=== PATIENT | male | born 1965 | race Caucasian/White ===

== ENCOUNTER 2019-03-07 22:38 | Outpatient (REF) | payer OTHER, SELFPAY ==
[2019-03-07 21:02] LABS: Anion Gap 8.5 mmol/L (3-11); BUN 22 mg/dL (7-18); CO2 28.5 mmol/L (21.0-32.0); Calcium 9.1 mg/dL (8.5-10.1); Chloride 102 mmol/L (98-107); Glucose 87 mg/dL (74-106); Potassium 4.3 mmol/L (3.5-5.1); Sodium 139 mmol/L (136-145)
== END 2019-03-07 22:58 ==
LOC: NCHCN 22:38
PROVIDERS: PCP Family Medicine; Visit Provider Internal Medicine
DX: I10 Essential (primary) hypertension (principal); R21 Rash and other nonspecific skin eruption
CPT/HCPCS: 80048

== ENCOUNTER 2020-05-03 20:16 | Outpatient (REF) | payer OTHER, SELFPAY ==
[2020-05-03 21:16] LABS: Anion Gap 8.7 mmol/L (3-11); BUN 19 mg/dL (7-18); CO2 28.3 mmol/L (21.0-32.0); CREATININE 0.95 mg/dL (0.70-1.30); Calcium 8.9 mg/dL (8.5-10.1); Calculated LDL 116 mg/dL (<100); Chloride 103 mmol/L (98-107); Cholesterol 188 mg/dL (<200); Glucose 91 mg/dL (74-106); HDL Cholesterol 43 mg/dL (40-60); Potassium 4.3 mmol/L (3.5-5.1); Sodium 140 mmol/L (136-145); Triglyceride 147 mg/dL (<150)
[2020-05-05 14:18] LABS: IgA 221 mg/dL (85-499); Interpretation (See Note); Tissue Transglutaminase IgA <1.2 U/mL (<4.0)
== END 2020-05-03 20:36 ==
LOC: NCHCN 20:16
PROVIDERS: PCP Family Medicine; Visit Provider Internal Medicine
DX: R19.7 Diarrhea, unspecified (principal); I10 Essential (primary) hypertension; Z13.220 Encounter for screening for lipoid disorders
CPT/HCPCS: 80048; 80061; 82784; 83516

== ENCOUNTER 2020-05-28 15:37 | Outpatient (REF) | payer OTHER, SELFPAY | END 2020-05-28 15:38 | disposition home or self-care (01) | LOC: NCHCN 15:37 | PROVIDERS: PCP Family Medicine; Visit Provider Internal Medicine | DX: Z00.00 Encounter for general adult medical examination without abnormal findings (principal); R19.7 Diarrhea, unspecified; I10 Essential (primary) hypertension; Z13.220 Encounter for screening for lipoid disorders | CPT/HCPCS: 87329; 82272; 83630 ==

== ENCOUNTER 2020-06-21 19:58 | Outpatient (REF) | payer OTHER, SELFPAY ==
[2020-06-21 13:38] LABS: C-Reactive Protein 0.08 mg/dL (0.0-0.3); TSH (W/Ref FT4) 2.11 uIU/mL (0.36-3.74)
[2020-06-22 15:20] LABS: ANCA Interpretation Negative (Negative)
[2020-06-23 23:28] LABS: Baker's Yeast, IgE <0.35 kU/L; Banana, IgE <0.35 kU/L; Barley, IgE <0.35 kU/L; Beef IgE <0.35 kU/L; Broccoli IgE <0.35 kU/L; Corn-Food IgE <0.35 kU/L; Milk, IgE <0.35 kU/L; Onion, IgE <0.35 kU/L; Soybean IgE <0.35 kU/L; White Potato, IgE <0.35 kU/L
[2020-06-23 23:59] LABS: Black/White Pepper IgE <0.35 kU/L; Cacao/Cocoa, IgE <0.35 kU/L; Cinnamon, IgE <0.35 kU/L; Strawberry, IgE <0.35 kU/L
[2020-06-25 18:02] LABS: CLASS 0; Egg Whole IgE <0.10 kU/L (<0.35)
== END 2020-06-21 19:59 | disposition home or self-care (01) ==
LOC: LBN 19:58
PROVIDERS: PCP Family Medicine; Visit Provider Surgery
DX: E73.9 Lactose intolerance, unspecified (principal); K52.89 Other specified noninfective gastroenteritis and colitis; L30.8 Other specified dermatitis; Z84.89 Family history of other specified conditions
CPT/HCPCS: 86003; 86255; 84443; 86140

== ENCOUNTER 2020-06-27 10:53 | Outpatient (REF) | payer OTHER, SELFPAY ==
[2020-06-30 19:04] LABS: Calprotectin <15.6 mcg/g
== END 2020-06-27 10:54 | disposition home or self-care (01) ==
LOC: LBN 10:53
PROVIDERS: PCP Family Medicine; Visit Provider Surgery
DX: K52.9 Noninfective gastroenteritis and colitis, unspecified (principal); E73.9 Lactose intolerance, unspecified; Z84.89 Family history of other specified conditions
CPT/HCPCS: 87493; 83993

== ENCOUNTER 2021-02-09 04:16 | Outpatient (CLI) | payer OTHER, SELFPAY ==
[2021-02-09 10:14] LABS: Source Nasal/Nares
[2021-02-09 15:19] LABS: COVID-19 PCR Negative (Negative)
== END 2021-02-09 04:17 | disposition home or self-care (01) ==
PROVIDERS: PCP Internal Medicine; Visit Provider Surgery
DX: Z20.822 Contact with and (suspected) exposure to COVID-19 (principal); Z01.818 Encounter for other preprocedural examination
CPT/HCPCS: 87635

== ENCOUNTER 2021-02-11 06:07 | Day surgery (SDC) | payer OTHER, SELFPAY ==
--- NOTE | 2021-02-10 21:33 | PDOC.DSDIS_ITS ---
Discharge Plan Disposition Patient Disposition: HOME Condition: Good Discharge Details Reason For Visit: EGD & CE Attending Provider: Leilani Escoto Primary Care Provider: Josse Rollins Home Meds and New Rx's Prescriptions: Continued lactase [Lactaid] 3,000 unit tablet 3,000 unit PO ONCE RF: 0 bisacodyl [Dulcolax (bisacodyl)] 5 mg tablet,delayed release (DR/EC) 5 mg PO ONCE Qty: 4 RF: 0 Discontinued polyethylene glycol 3350 17 gram/dose powder 238 g PO ONCE Qty: 238 RF: 0 loperamide [Imodium] 2 mg Capsule 2 mg PO DIRECTED RF: 0 Discharge Instructions Additional Instructions: DSU Colonoscopy Post- Op Instructions Instructions for Everyone who is given Anesthesia: For your safety, please do the following for the next twenty-four (24) hours: *Do Not operate a motor vehicle (car, truck, motorcycle, etc.) *Do Not drink alcoholic beverages or use any recreational drugs for the first 24 hours or while taking pain medications. The medications in your body may have a reaction that can be dangerous. *Do Not make any important decisions or sign any important papers. Findings: bile reflux -Resume fiber therapy starting on Sunday. I would give this a solid 4 weeks trial. If there is no improvement then we should try a bile acid binder such as cholestyramine Follow up: in 2 wks /my office will send a letter with the biopsy results in 2 to 3 weeks time. 1. No lifting over 20 pounds or strenuous activity for the first 24 hours after your procedure. After 24 hours there are no restrictions on your activity but you may feel fatigued for a few days. 2. After you arrive home you may have a light meal and return to your normal diet as you can tolerate it without feeling sick to your stomach. 3. You may have a bloated, gaseous feeling in your belly (abdomen) after a colonoscopy. Passing gas and belching will help. Walking or lying down on your left side with your knees flexed may relieve the discomfort. Call the office at [phone] (Office) or [phone] (Hospital) right away if you notice any of the following: a.Vomiting of blood or ?coffee ground stools?. b.Rectal bleeding 1Tbsp, blood clots or continuous bleeding. c.Severe belly (abdominal) pain. d.A hard distended belly (abdomen) and an inability to pass gas. 4. Please don?t expect to have a normal BM (bowel movement) for 2-3 days after your procedure. 5. If there are questions regarding the findings of your procedure, please contact your doctor 6. If you are unable to contact your doctor with a problem, contact the hospital at [phone]. 7. Continue all your regular medications unless directed otherwise. I understand the above instructions and have no questions. Signature of Patient or Adult Escort Name of Responsible Adult Escort Signature of Nurse Date/Time Activity:: see above Diet:: see above Discharge Orders Discharge Orders: Discharge Order (Routine); Ordered 02/10/21 Ordered By: Leilani Escoto DS: Diagnosis Discharge Diagnosis (1) Chronic diarrhea: Status: Acute (2) Family history of allergic disorder: Status: Acute (3) Eczema: Status: Acute
--- NOTE | 2021-02-10 21:38 | W.COLOREPORT ---
Colonoscopy Report Date of procedure: 02/11/21 Pre-op diagnosis general: chronic diarrhea Surgeon: Leilani Escoto Anesthesia Type: General:No Airway Estimated blood loss (mL): 1 Pathology: other Complications: None Disposition: PACU Prep: Miralax/Dulcolax Retraction Time: 9mins Procedure Description: After informed consent was obtained the patient was taken to the procedure room and placed in a left decubitous position. Monitors were applied and a time out was done. The patients name, date of , procedure, allergies to medications and metal in their body was reviewed. The patient was then sedated. Once sedated and comfortable a rectal exam was done. External exam was normal. Internal exam revealed a normal sphincter tone and no palpable masses. The scope was then introduced and retrofelexed. Grade I internal hemorrhoids x1 were identified. The scope was then advanced to the cecum difficulty. The TI and appendiceal orifice were identified. The prep was good. The scope was then slowly retracted over 9 minutes back into the rectum. There are no AVMs, diverticula, polyps visualized today. The mucosa appears mildly erythematous from the entire colon. This may just be from doing the prep. There are no signs of inflammatory bowel disease. We did do biopsies every 10 cm. The scope was removed and the patient was woken up and taken back to Same day surgery in stable condition. The patient tolerated the procedure well and there were no immediate complications. Follow up: The patient should follow up in 10 years unless they develop changes in bowel habits or other new gastrointestinal complaints.
--- NOTE | 2021-02-10 21:39 | W.PM.ENDDOP ---
Date of service: 02/11/21 Endoscopy Report DATE OF PROCEDURE: 02/11/21 PRE-OP DIAGNOSIS: chronic diarrhea POST-OP DIAGNOSIS: other (bile reflux) SURGEON: Leilani Escoto ANESTHESIA TYPE: General:No Airway ESTIMATED BLOOD LOSS: 1 PATHOLOGY: other COMPLICATIONS: None DISPOSITION: same day PREP: Miralax/Dulcolax COLONOSCOPY RETRACTION TIME: 9mins PROCEDURE DESCRIPTION: After informed consent was obta there is no esophageal erosions, varices, diverticula, or stricture apparent. Ined the patient was take to the procedure room and placed in a supine position. Monitors were applied and a time out was done. The patients name, date of , procedure type, allergies to medications and metal in their body was reviewed. A bite block was placed and the patient was sedated. Once sedated and comfortable the gastroscope was advanced through the oropharynx which was grossly normal into the esophagus. The proximal and mid-esophagus were nl. In the distal esophagus there was noted. The scope was advanced into the stomach and through the pylorus into the 3rd portion of the duodenum. The duodenum was noted to be normal.. Biopsies were done, all specimen is retrieved and no bleeding is noted.. The scope was retracted back into the stomach and biopsies were done to rule out H. pylori. There were no ulcers or gastritis. Upon inserting the scope into the stomach it was noted and a large amount of bile in the stomach. There does not appear to be any gastritis associated with this. The scope was retroflexed. The cardia and fundus were noted to be normal. The hiatus is mildly patulous but there is no herniation. 38 the scope was retracted back into the esophagus and biopsies were done of the GE junction to rule out Rizo's. The Z line was regular. The GE junction was at 37 cm. The scope was removed and the patient was woken up and taken back to [facility] in stable condition.
[2021-02-11 06:32] VITALS: BP 159/95; PULSE 56; RESP 16; TEMP 36.4; O2SAT 98
[2021-02-11 06:36] LABS: Abs Immature Grans 0.01 10^3/uL (0.0-0.06); Absolute Basophil Count 0.06 10^3/uL (0.0-0.2); Absolute Eosinophil Count 0.13 10^3/uL (0.0-0.7); Absolute Lymphocyte Count 1.65 10^3/uL (1.2-3.4); Absolute Monocyte Count 0.66 10^3/uL (0.1-0.8); Absolute Neutrophil Count 3.94 10^3/uL (1.2-6.7); Basophils % 0.9; HCT 48.6 % (40.0-50.0); HGB 16.1 g/dL (13.5-17.5); Immature Grans % 0.2; Lymphocytes % 25.6; MCH 28.4 pg (27.0-33.0); MCHC 33.1 % (32.0-36.0); MCV 85.7 fL (80-95); MPV 10.1 fL (8.0-11.0); Monocytes % 10.2; Neutrophils % 61.1; Nucleated RBC 0 %; Platelet Count 180 10^3/uL (130-400); RBC 5.67 10^6/uL (4.36-5.78); RDW 11.8 % (11.8-14.1); RDW-SD 37.2 fL; WBC 6.45 10^3/uL (4.4-10.8)
[2021-02-11] MEDS: Lactated Ringers 1,000 ML 80 ML IV (06:47)
[2021-02-11 06:49] LABS: C-Reactive Protein < 0.05 mg/dL (0.0-0.3)
--- NOTE | 2021-02-11 07:03 | W.ANESPRE ---
General Info Date of Service Date Performed: 02/11/21 Height: 5 ft 9 in Weight: 64.6 kg Body Mass Index (BMI): 21.0 Surgical Procedure: Operation Date: 02/11/21 07:35 Proposed Procedures Side Surgeon p Colonoscopy/Gastroscopy Leilani Escoto, Meds Allergies and Home Medications Allergies Allergy/AdvReac Type Severity Reaction Status Date / Time lactose Allergy Intermediate diarrhea Verified 02/11/21 06:36 Home Medication Medication Instructions Recorded bisacodyl 5 mg tablet,delayed 5 mg PO ONCE #4 tab 02/02/21 release polyethylene glycol 3350 17 238 g PO ONCE #238 g 02/02/21 gram/dose oral powder lactase 3,000 unit tablet 3,000 unit PO ONCE 02/07/21 loperamide [Imodium] 2 mg PO DIRECTED 02/09/21 Current Visit Medications: Current Medications Generic Name Dose Route Start Last Admin Trade Name Freq PRN Reason Stop Dose Admin Hyoscyamine Sulfate 0.125 mg 02/10/21 21:36 Hyoscyamine 0.125 Mg Sl/Oral/Chew SL DIRECTED PRN Ringer's Solution 1,000 mls @ 80 mls/hr 02/11/21 06:00 02/11/21 06:47 IV 03/12/21 23:59 80 mls/hr INFUSION LEOBARDO Administration IV Miscellaneous Supplies 1 each 02/11/21 06:00 Iv Access IV 03/12/21 23:59 DIRECTED LEOBARDO Ondansetron HCl 4 mg 02/10/21 21:36 Ondansetron 4 Mg/2 Ml Vial IVP Q4H PRN PRN Nausea / Vomiting Sodium Chloride 0 ml 02/11/21 06:00 Normal Saline Flush 10 Ml Syr IV 03/12/21 23:59 PRN PRN Sodium Chloride 0 ml 02/11/21 06:00 Normal Saline 10 Ml Vial IJ 03/12/21 23:59 DIRECTED PRN Sterile Water 0 ml 02/11/21 06:00 Water,Injection,Sterile 10 Ml Vial IJ 03/12/21 23:59 DIRECTED PRN PFSH Active Problems Active Problems: Problem Status Onset Code Chronic diarrhea K52.9 Lactose intolerance E73.9 Family history of allergic disorder Z84.89 Eczema L30.9 Medical History Medical History Bicuspid aortic valve F/U with cardiology every 10 years per . (Last seen 7 years ago) Per everything was normal. Chronic diarrhea Eczema Hypertension Surgical History Surgical History Colonoscopy - IV Sedation (08/21/16) Tobacco Smoking/Tobacco Use Status: Never Alcohol Alcohol Intake: current Alcohol intake frequency: a few times a month Alcohol type: beer Substance Use Substance use: Never Substance use type: does not use Vital Signs and Lab Results Vital Signs Most Recent Vital Signs in EMR: Most Recent Vital Signs Temp Pulse Resp BP Pulse Ox 36.4 C L 56 L 16 159/95 H 98 02/11/21 06:32 02/11/21 06:32 02/11/21 06:32 02/11/21 06:32 02/11/21 06:32 Lab Results Result Diagrams: 02/11/21 06:33 Blood Type / Crossmatch: No Data to Display Complete Blood Count: White Blood Count 6.45 10^3/uL (4.4-10.8) 02/11/21 06:33 02/11/21 Red Blood Count 5.67 10^6/uL (4.36-5.78) 02/11/21 06:33 02/11/21 Hemoglobin 16.1 g/dL (13.5-17.5) 02/11/21 06:33 02/11/21 Hematocrit 48.6 % (40.0-50.0) 02/11/21 06:33 02/11/21 Platelet Count 180 10^3/uL (130-400) 02/11/21 06:33 02/11/21 Complete Metabolic Panel: C-Reactive Protein < 0.05 mg/dL (0.0-0.3) 02/11/21 06:33 02/11/21 Liver Function Panel: No Data to Display Coagulation Panel: No Data to Display Cardiac Panel: No Data to Display Arterial Blood Gas: No Data to Display Venous Blood Gas: No Data to Display Pancreas Panel: No Data to Display Thyroid Panel: No Data to Display Infectious Disease: Coronavirus (COVID-19)(PCR) Negative (Negative) 02/09/21 08:37 02/09/21 Coronavirus 2019 Source Nasal/Nares 02/09/21 08:37 02/09/21 Blood Cultures: No Data to Display Toxicology Panel: No Data to Display Anesthesia Assessment and Plan Anesthesia History Personal History: No History of Anesthesia Complications Family History: No Family History of Anesthesia Complications Exercise Tolerance Exercise Tolerance: Metabolic Equivalents>4 Pertinent Negatives Pertinent Negatives: No Symptoms of GERD, No Major Cardiovascular Symptoms or Complaints, No Major Pulmonary Symptoms or Complaints and No History of CVA/TIA Cardiac & Pulmonary Exam Cardiac Exam: Normal S1/S2 Heart Sounds Pulmonary Exam: Clear Bilateral Breath Sounds Airway Exam Known Difficult Airway: No Mallampati Class: 2 Mouth Opening: Normal (> 3cm) Thyromental Distance: Greater than 3 cm Neck Range of Motion: Full ROM Neck Circumference: Normal Teeth Condition: Normal Dentition ASA Classification ASA Score: ASA 2 Emergency Case?: No NPO Status NPO Status: NPO Clears >2 hours, Solids >8 hours Anesthesia Plan Resuscitation Status: Full Code Anesthesia Technique: General Anesthesia Airway Planned: Natural Airway Monitors Used: Standard Monitors
[2021-02-11 07:35] VITALS: BMI 21.0
--- NOTE | 2021-02-11 07:41 | BOWEL_PTH ---
PATIENT: Nick Manjarrez LOC: [facility] U#:[id number] AGE/SX: 56/M ROOM: RE02/11/[address]: Leilani Escoto : 1965 BED: DIS: 02/11/2021 SPEC #: [id number] RECD: 02/11/21 11:55 STATUS: [facility] #: [id number] MERON: 02/11/21 07:[address]: Leilani Escoto DEPT: Surgical Specimen RECD BY: Tita Marion ENTERED: 02/11/21 12:00 SP TYPE: Bowel OTHR DR: Josse Rollins Tissues: 1 - BIOPSY BOWEL 2 - BIOPSY BOWEL 3 - STOMACH BIOPSY 4 - STOMACH BIOPSY 5 - ESOPHAGUS BIOPSY 6 - ESOPHAGUS BIOPSY 7 - BIOPSY BOWEL 8 - BIOPSY BOWEL 9 - BIOPSY BOWEL 10 - BIOPSY BOWEL 11 - BIOPSY BOWEL 12 - BIOPSY BOWEL 13 - BIOPSY BOWEL 14 - BIOPSY BOWEL 15 - BIOPSY BOWEL Procedures: GROSS AND MICRO LEVEL 4 Comments: [id number]
[2021-02-11 08:17] VITALS: BP 130/86; PULSE 53; RESP 16; TEMP 36.5; O2SAT 100
[2021-02-11 08:45] VITALS: BP 138/74; PULSE 57; RESP 16; TEMP 36.1; O2SAT 100
--- NOTE | 2021-02-11 08:52 | W.ANESPOSTOP ---
Postoperative Evaluation Date, Time and Location Date Performed: 02/11/21 Time Performed: 08:25 Patient Location: Day Surgery Unit Vital Signs Most Recent Imported Vital Signs: Most Recent Vital Signs Temp Pulse Resp BP Pulse Ox 36.5 C 53 L 16 130/86 100 02/11/21 08:17 02/11/21 08:17 02/11/21 08:17 02/11/21 08:17 02/11/21 08:17 Pain Score Most Recent Pain Score: Most Recent Pain Score Pain Level 0 02/11/21 08:17 Assessment Mental Status: Awake (Alert & Oriented to Patient Baseline) Airway and Respiratory Function: Patent airway with normal (patient baseline) respiratory exam Cardiovascular Function: Hemodynamically Stable Hydration Status: Adequately Hydrated Nausea & Vomiting: No Nausea or Vomiting Pain: Pt. Denies Any Pain Peripheral Nerve Block: Patient did not receive a nerve block
== END 2021-02-11 08:55 | disposition home or self-care (01) ==
PROVIDERS: PCP Internal Medicine; Visit Provider Surgery
PROC: (CPT 45380; principal; 2021-02-11 07:30)
DX: K52.9 Noninfective gastroenteritis and colitis, unspecified (principal); K21.00 Gastro-esophageal reflux disease with esophagitis, without bleeding; E73.9 Lactose intolerance, unspecified; I10 Essential (primary) hypertension; K29.50 Unspecified chronic gastritis without bleeding
CPT/HCPCS: 45380; 43239; 88305; 85025; 86140; J2001

== ENCOUNTER 2023-03-29 10:34 | Outpatient (REF) | payer OTHER, SELFPAY ==
[2023-03-29 14:47] LABS: Abs Immature Grans 0.02 10^3/uL (0.0-0.06); Absolute Basophil Count 0.06 10^3/uL (0.0-0.2); Absolute Eosinophil Count 0.15 10^3/uL (0.0-0.7); Absolute Monocyte Count 0.57 10^3/uL (0.1-0.8); Absolute Neutrophil Count 3.26 10^3/uL (1.2-6.7); Basophils % 1.1; Eosinophils % 2.7; HCT 51.9 % (40.0-50.0); HGB 17.5 g/dL (13.5-17.5); Immature Grans % 0.4; Lymphocytes % 28.3; MCH 28.6 pg (27.0-33.0); MCHC 33.7 % (32.0-36.0); MCV 85 fL (80-95); MPV 10.7 fL (8.0-11.0); Monocytes % 10.1; Neutrophils % 57.4; Platelet Count 184 10^3/uL (130-400); RDW-SD 36.7 fL; WBC 5.66 10^3/uL (4.4-10.8)
[2023-03-29 14:58] LABS: ALT 56 U/L (16-63); AST 39 U/L (15-37); Albumin 3.9 g/dL (3.4-5.0); Alkaline Phosphatase 94 U/L (46-116); Anion Gap 3.9 mmol/L (3-11); BUN 21 mg/dL (7-18); Bilirubin, Total 1.6 mg/dL (0.2-1.0); CO2 33.1 mmol/L (21.0-32.0); CREATININE 1.1 mg/dL (0.70-1.30); Calcium 9.9 mg/dL (8.5-10.1); Calculated LDL 157 mg/dL (<100); Chloride 101 mmol/L (98-107); Cholesterol 233 mg/dL (<200); Glucose 101 mg/dL (74-106); HDL Cholesterol 56 mg/dL (40-60); Potassium 5.2 mmol/L (3.5-5.1); Sodium 138 mmol/L (136-145); Total Protein 7.9 g/dL (6.4-8.2); Triglyceride 103 mg/dL (<150)
[2023-03-29 15:47] LABS: RBC 6.11 10^6/uL (4.36-5.78)
[2023-03-29 15:48] LABS: Diff Comment RBC Morph Reviewed; RBC Morphology Normal
== END 2023-03-29 10:35 | disposition home or self-care (01) ==
LOC: NCHCN 10:34
PROVIDERS: PCP Internal Medicine; Visit Provider Family Medicine
DX: Z00.00 Encounter for general adult medical examination without abnormal findings (principal); Z13.220 Encounter for screening for lipoid disorders; Z13.0 Encounter for screening for diseases of the blood and blood-forming organs and certain disorders involving the immune mechanism; Z13.228 Encounter for screening for other metabolic disorders
CPT/HCPCS: 80053; 80061; 85025

== ENCOUNTER 2024-03-06 16:51 | Outpatient (REF) | payer OTHER, SELFPAY ==
[2024-03-06 21:43] LABS: ALT 32 U/L (16-63); AST 33 U/L (15-37); Albumin 3.9 g/dL (3.4-5.0); Alkaline Phosphatase 100 U/L (46-116); Anion Gap 8.5 mmol/L (3-11); BUN 22 mg/dL (7-18); Bilirubin, Total 1.45 mg/dL (0.2-1.0); CO2 28.5 mmol/L (21.0-32.0); CREATININE 1.1 mg/dL (0.70-1.30); Calcium 8.9 mg/dL (8.5-10.1); Chloride 103 mmol/L (98-107); Estimated GFR 77.81 (mL/min/1.73m2); Glucose 98 mg/dL (74-106); Potassium 4.4 mmol/L (3.5-5.1); Sodium 140 mmol/L (136-145); Total Protein 7.2 g/dL (6.4-8.2)
== END 2024-03-06 16:52 | disposition home or self-care (01) ==
LOC: NCHCN 16:51
PROVIDERS: PCP Internal Medicine; Visit Provider Family Medicine
DX: Z00.00 Encounter for general adult medical examination without abnormal findings (principal)
CPT/HCPCS: 80053

== ENCOUNTER 2025-03-10 19:00 | Outpatient (REF) | payer OTHER, SELFPAY ==
[2025-03-10 16:17] LABS: HCT 48.9 % (40.0-50.0); HGB 16.4 g/dL (13.5-17.5); MCH 28.8 pg (27.0-33.0); MCHC 33.5 % (32.0-36.0); MCV 86 fL (80-95); MPV 10.9 fL (8.0-11.0); Platelet Count 197 10^3/uL (130-400); RBC 5.69 10^6/uL (4.36-5.78); RDW 12.1 % (11.8-14.1); RDW-SD 38.2 fL; WBC 4.96 10^3/uL (4.4-10.8)
[2025-03-10 16:38] LABS: ALT 26 U/L (10-49); AST 30 U/L (<34); Albumin 4.4 g/dL (3.2-5.0); Alkaline Phosphatase 87 U/L (46-116); Anion Gap 6.2 mmol/L (3-11); BUN 24 mg/dL (9-23); Bilirubin, Total 1.90 mg/dL (0.2-1.2); CO2 29.8 mmol/L (20.0-31.0); Calcium 9.8 mg/dL (8.3-10.6); Chloride 104 mmol/L (98-107); Cholesterol 211 mg/dL (<200); Glucose 93 mg/dL (74-106); HDL Cholesterol 55 mg/dL (>40); Potassium 4.3 mmol/L (3.5-5.1); Sodium 140 mmol/L (136-145); Total Protein 7.1 g/dL (5.7-8.2)
== END 2025-03-10 19:01 | disposition home or self-care (01) ==
LOC: NCHCN 19:00
PROVIDERS: PCP Internal Medicine; Visit Provider Family Medicine
DX: I10 Essential (primary) hypertension (principal); E78.5 Hyperlipidemia, unspecified
CPT/HCPCS: 80053; 80061; 85027